=== PATIENT | male | born 1980 | race Caucasian/White ===

== ENCOUNTER 2023-03-22 12:00 | Inpatient (IN) | payer OTHER ==
[~2023-03-22] VITALS: Ht 167.6 cm; Wt 78.9 kg
[2023-03-22 12:42] VITALS: BP_SYST 113; PULSE 80; RESP 18; TEMP 98.7
[2023-03-22 13:11] VITALS: BP_SYST 113; PULSE 80; RESP 17; TEMP 98.7; O2SAT 96
[2023-03-22 13:12] VITALS: O2SAT 96
[2023-03-22] MEDS ORDERED: FLUCONAZOLE 200 MG TABLET (DIFLUCAN) PO ONE (14:15)
[2023-03-22] MEDS: ACYCLOVIR 400 MG TABLET PO SCH ×3 (15:05→22:46)
[2023-03-22] MEDS ORDERED: ACETAMINOPHEN 325 MG TABLET PO PRN (15:15)
[2023-03-22] MEDS ORDERED: FAMOTIDINE PF 20 MG/2 ML VIAL IVP ONE (15:30)
[2023-03-22] MEDS ORDERED: CHOLECALCIFEROL (VITAMIN D3) 5,000 UNIT TABLET PO ONE (16:00)
[2023-03-22] MEDS ORDERED: MAGNESIUM OXIDE 400 MG TABLET PO ONE (16:00)
[2023-03-22] MEDS: KETOROLAC TROMETHAMINE 15 MG VIAL IVP PRN (16:05)
[2023-03-22] MEDS: DIPHENHYDRAMINE INJ 50 MG/ML VIAL IVP PRN ×2 (16:05→22:46)
[2023-03-22] MEDS: LR 1,000 ML IV SCH (16:07)
[2023-03-22 16:40] VITALS: BP_SYST 118; PULSE 76; RESP 20; TEMP 98.5; O2SAT 96
[2023-03-22 16:44] LABS: HEMATOCRIT 48.8 % (36-54); HEMOGLOBIN 16.6 g/dL (14.0-18.0); MEAN CORPUSCULAR HEMOGLOBIN 29 pg (27-31); MEAN CORPUSCULAR HGB CONC 34 % (32-36); MEAN CORPUSCULAR VOLUME 86 fL (79.0-98.0); PLATELET COUNT (AUTO) 297 K/uL (130-430); RED BLOOD CELL COUNT(AUTO) 5.65 MIL/uL (4.2-6.2); RED CELL DISTRIBUTION WIDTH 14.1 % (9.0-15.0); WHITE BLOOD COUNT (AUTO) 11.6 K/uL (4.8-10.8)
[2023-03-22 16:47] LABS: ERYTHROCYTE SEDIMENTATION RATE 13 MM/HR (0-15)
[2023-03-22 16:55] LABS: CALCIUM 8.6 mg/dL (8.4-11.0); CREATININE 0.92 mg/dL (0.55-1.30); POTASSIUM 3.9 mmol/L (3.5-5.1)
[2023-03-22 16:58] LABS: ATYPICAL LYMPHOCYTES % 10 % (0-0); BAND % (MANUAL) 2 % (0-6); BASOPHILS % (MANUAL) 0 % (0-2); EOSINOPHILS % (MANUAL) 2 % (0-7); LYMPHOCYTES % (MANUAL) 10 % (20-46); MONOCYTES % (MANUAL) 3 % (0-11); PLATELET ESTIMATE ADEQUATE (ADEQUATE)
[2023-03-22 16:59] LABS: ALBUMIN 3.1 g/dL (3.4-4.8); PHOSPHORUS 3.4 mg/dL (2.7-4.5); TOTAL BILIRUBIN 0.5 mg/dL (0.0-1.0)
[2023-03-22 17:12] LABS: TOTAL PROTEIN, SERUM 6.9 g/dL (6.4-8.3)
[2023-03-22 19:00] VITALS: BP_SYST 110; PULSE 74; RESP 18; TEMP 98; O2SAT 97; O2SAT 98
[2023-03-22] MEDS: MAGNESIUM OXIDE 400 MG TABLET PO SCH (21:00)
[2023-03-22] MEDS: FAMOTIDINE PF 20 MG/2 ML VIAL IVP SCH (21:00)
[2023-03-22] MEDS: NYSTATIN 500,000 UNITS/5 ML UDC PO SCH (21:00)
[2023-03-22] MEDS: LORazepam 2 MG/ML VIAL IVP PRN (22:48)
[2023-03-22] MEDS: traMADol HCL HCL 50 MG TABLET (ULTRAM) PO PRN (22:48)
[2023-03-23] VITALS (8 sets, daily range): BP systolic 110–130; PULSE 63–95; RESP 14–18; TEMP 97.5–99.4; O2SAT 94–100
[2023-03-23] MEDS: LR 1,000 ML IV SCH ×3 (01:15→21:21)
[2023-03-23] MEDS: ACYCLOVIR 400 MG TABLET PO SCH ×5 (05:11→23:11)
[2023-03-23] MEDS: traMADol HCL HCL 50 MG TABLET (ULTRAM) PO PRN ×2 (05:12→21:17)
[2023-03-23] MEDS: KETOROLAC TROMETHAMINE 15 MG VIAL IVP PRN ×3 (08:38→20:36)
[2023-03-23] MEDS ORDERED: CHOLECALCIFEROL (VITAMIN D3) 5,000 UNIT TABLET PO SCH (09:00)
[2023-03-23] MEDS: FAMOTIDINE PF 20 MG/2 ML VIAL IVP SCH ×2 (10:21→21:17)
[2023-03-23] MEDS: NYSTATIN 500,000 UNITS/5 ML UDC PO SCH ×2 (10:21→21:17)
[2023-03-23] MEDS: CHOLECALCIFEROL (VITAMIN D3) 5,000 UNIT TABLET PO SCH (10:22)
[2023-03-23] MEDS: FLUCONAZOLE 200 MG TABLET (DIFLUCAN) PO SCH (10:25)
[2023-03-23] MEDS: MAGNESIUM OXIDE 400 MG TABLET PO SCH ×2 (10:28→21:21)
[2023-03-23] MEDS: DIPHENHYDRAMINE INJ 50 MG/ML VIAL IVP PRN ×3 (10:37→21:18)
[2023-03-23] MEDS: ACETAMINOPHEN 325 MG TABLET PO PRN (21:18)
[2023-03-23] MEDS: HYDROcodone/ACETAMIN 10-325 MG TAB PO PRN (23:12)
[2023-03-24] MEDS: TEMAZEPAM 15 MG CAPSULE PO PRN (01:06)
[2023-03-24 01:08] VITALS: BP_SYST 127; PULSE 103; RESP 18; TEMP 98.7; O2SAT 97
[2023-03-24] MEDS: KETOROLAC TROMETHAMINE 15 MG VIAL IVP PRN (02:44)
[2023-03-24] MEDS: traMADol HCL HCL 50 MG TABLET (ULTRAM) PO PRN (03:32)
[2023-03-24 05:48] LABS: BASOPHILS % (AUTO) 0.2 % (0.0-2.0); EOSINOPHILS # (AUTO) 1.2 K/uL (0.0-0.4); EOSINOPHILS % (AUTO) 8.9 % (0.0-4.0); HEMATOCRIT 47.8 % (36-54); HEMOGLOBIN 16.4 g/dL (14.0-18.0); LYMPHOCYTES # (AUTO) 1.3 K/uL (1.0-5.5); LYMPHOCYTES % (AUTO) 9.5 % (20.5-51.5); MEAN CORPUSCULAR HEMOGLOBIN 30 pg (27-31); MEAN CORPUSCULAR HGB CONC 34 % (32-36); MEAN CORPUSCULAR VOLUME 86 fL (79.0-98.0); MONOCYTES # (AUTO) 1.4 K/uL (0.0-1.0); MONOCYTES % (AUTO) 9.9 % (1.7-9.3); NEUTROPHILS # (AUTO) 9.8 K/uL (1.8-7.7); NEUTROPHILS % (AUTO) 71.5 % (40.0-70.0); PLATELET COUNT (AUTO) 255 K/uL (130-430); RED BLOOD CELL COUNT(AUTO) 5.54 MIL/uL (4.2-6.2); RED CELL DISTRIBUTION WIDTH 14.1 % (9.0-15.0); WHITE BLOOD COUNT (AUTO) 13.8 K/uL (4.8-10.8)
[2023-03-24 06:10] LABS: CALCIUM 7.9 mg/dL (8.4-11.0); CREATININE 1.05 mg/dL (0.55-1.30); POTASSIUM 3.9 mmol/L (3.5-5.1)
[2023-03-24] MEDS: ACYCLOVIR 400 MG TABLET PO SCH ×4 (07:04→21:23)
[2023-03-24] MEDS: HYDROcodone/ACETAMIN 10-325 MG TAB PO PRN ×3 (07:05→17:32)
[2023-03-24] MEDS: LR 1,000 ML IV SCH ×2 (07:18→20:55)
[2023-03-24 08:30] VITALS: BP_SYST 123; PULSE 95; RESP 18; TEMP 97.1; O2SAT 97
[2023-03-24] MEDS: MAGNESIUM OXIDE 400 MG TABLET PO SCH ×2 (10:09→20:53)
[2023-03-24] MEDS: FAMOTIDINE PF 20 MG/2 ML VIAL IVP SCH ×2 (10:10→20:54)
[2023-03-24] MEDS: CHOLECALCIFEROL (VITAMIN D3) 5,000 UNIT TABLET PO SCH (10:10)
[2023-03-24] MEDS: NYSTATIN 500,000 UNITS/5 ML UDC PO SCH ×2 (10:13→20:53)
[2023-03-24] MEDS: FLUCONAZOLE 200 MG TABLET (DIFLUCAN) PO SCH (10:13)
[2023-03-24 10:58] LABS: BILIRUBIN,URINE NEGATIVE (NEGATIVE); BLOOD, URINE NEGATIVE (NEGATIVE); COLOR,URINE YELLOW (YELLOW); GLUCOSE,URINE NEGATIVE (NEGATIVE); KETONES,URINE NEGATIVE (NEGATIVE); LEUKOCYTE ESTERASE ,URINE NEGATIVE (NEGATIVE); NITRITE, URINE NEGATIVE (NEGATIVE); UROBILINOGEN,URINE 0.2 (0.2-1.0)
[2023-03-24 11:03] LABS: CLARITY/URINE SLIGHTLY HAZY (CLEAR); PROTEIN URINE TRACE (NEGATIVE)
[2023-03-24 11:17] LABS: BACTERIA,URINE FEW /HPF (None Seen); MUCUS,URINE 1+ /LPF (None Seen); RBC,URINE 0-3 /HPF (0-3); WBC,URINE 0-3 /HPF (0-3)
[2023-03-24 12:10] VITALS: BP_SYST 119; PULSE 75; RESP 18; TEMP 96.2; O2SAT 98
[2023-03-24] MEDS: DIPHENHYDRAMINE INJ 50 MG/ML VIAL IVP PRN ×3 (12:43→20:54)
[2023-03-24 16:20] VITALS: BP_SYST 122; PULSE 85; RESP 16; TEMP 97.4; O2SAT 98
[2023-03-24 19:00] VITALS: BP_SYST 137; PULSE 101; RESP 16; TEMP 98.9; O2SAT 96; O2SAT 98
[2023-03-24 20:00] VITALS: BP_SYST 137; PULSE 101; RESP 17; TEMP 98.9; O2SAT 95
[2023-03-24] MEDS: ACETAMINOPHEN 325 MG TABLET PO PRN (20:54)
[2023-03-25] VITALS (8 sets, daily range): BP systolic 113–128; PULSE 82–106; RESP 17–20; TEMP 98.2–102.7; O2SAT 94–98
[2023-03-25] MEDS: DIPHENHYDRAMINE INJ 50 MG/ML VIAL IVP PRN ×5 (00:36→22:43)
[2023-03-25] MEDS: HYDROcodone/ACETAMIN 10-325 MG TAB PO PRN ×2 (00:36→06:28)
[2023-03-25] MEDS: LORazepam 2 MG/ML VIAL IVP PRN (03:57)
[2023-03-25] MEDS: LR 1,000 ML IV SCH (04:04)
[2023-03-25 05:01] LABS: BASOPHILS # (AUTO) 0.1 K/uL (0.0-0.2); BASOPHILS % (AUTO) 0.5 % (0.0-2.0); EOSINOPHILS # (AUTO) 1.2 K/uL (0.0-0.4); EOSINOPHILS % (AUTO) 7.2 % (0.0-4.0); HEMATOCRIT 46.4 % (36-54); HEMOGLOBIN 16.1 g/dL (14.0-18.0); LYMPHOCYTES # (AUTO) 1.5 K/uL (1.0-5.5); LYMPHOCYTES % (AUTO) 9.1 % (20.5-51.5); MEAN CORPUSCULAR HEMOGLOBIN 30 pg (27-31); MEAN CORPUSCULAR HGB CONC 35 % (32-36); MEAN CORPUSCULAR VOLUME 85 fL (79.0-98.0); MONOCYTES # (AUTO) 0.8 K/uL (0.0-1.0); MONOCYTES % (AUTO) 5.1 % (1.7-9.3); NEUTROPHILS # (AUTO) 12.8 K/uL (1.8-7.7); NEUTROPHILS % (AUTO) 78.1 % (40.0-70.0); PLATELET COUNT (AUTO) 251 K/uL (130-430); RED BLOOD CELL COUNT(AUTO) 5.44 MIL/uL (4.2-6.2); WHITE BLOOD COUNT (AUTO) 16.4 K/uL (4.8-10.8)
[2023-03-25 05:33] LABS: ALBUMIN 2.5 g/dL (3.4-4.8); CALCIUM 8.2 mg/dL (8.4-11.0); CREATININE 1.17 mg/dL (0.55-1.30); PHOSPHORUS 2.6 mg/dL (2.7-4.5); TOTAL BILIRUBIN 1.6 mg/dL (0.0-1.0); TOTAL PROTEIN, SERUM 6.7 g/dL (6.4-8.3)
[2023-03-25] MEDS: ACYCLOVIR 400 MG TABLET PO SCH ×5 (06:11→22:43)
[2023-03-25] MEDS ORDERED: NALOXONE HCL 0.4 MG/ML AMP (NARCAN) IVP PRN (07:15)
[2023-03-25] MEDS: HYDROmorphone 1 MG/ML INJ. CARTRIDGE IVP PRN ×3 (07:43→17:23)
[2023-03-25] MEDS: FAMOTIDINE PF 20 MG/2 ML VIAL IVP SCH ×2 (09:13→22:43)
[2023-03-25] MEDS: NYSTATIN 500,000 UNITS/5 ML UDC PO SCH ×2 (09:14→22:44)
[2023-03-25] MEDS: CHOLECALCIFEROL (VITAMIN D3) 5,000 UNIT TABLET PO SCH (09:14)
[2023-03-25] MEDS: MAGNESIUM OXIDE 400 MG TABLET PO SCH ×2 (09:14→22:43)
[2023-03-25] MEDS: FLUCONAZOLE 200 MG TABLET (DIFLUCAN) PO SCH (09:14)
[2023-03-25] MEDS: NACL 0.9% 1,000 ML IV SCH (13:58)
[2023-03-25] MEDS ORDERED: ceFAZolin SODIUM 1 GM in D5W 100 ML IV ONE (15:00)
[2023-03-25] MEDS ORDERED: NACL 0.9% 1,000 ML IV ONE (17:15)
[2023-03-25] MEDS: ACETAMINOPHEN 325 MG TABLET PO PRN (17:21)
[2023-03-25] MEDS: PIPERACILLIN/TAZO 3.375/DEX-IS 50 ML IV SCH (18:27)
[2023-03-25 19:52] LABS: INR 1.3 (0.80-1.20); PROTHROMBIN TIME 13.2 SECS (9.5-12.5)
[2023-03-25 21:22] LABS: BILIRUBIN,URINE NEGATIVE (NEGATIVE); BLOOD, URINE NEGATIVE (NEGATIVE); CLARITY/URINE Clear (CLEAR); COLOR,URINE YELLOW (YELLOW); GLUCOSE,URINE NEGATIVE (NEGATIVE); KETONES,URINE 2+ (NEGATIVE); LEUKOCYTE ESTERASE ,URINE NEGATIVE (NEGATIVE); NITRITE, URINE NEGATIVE (NEGATIVE); PH,URINE 6.5 (5.0-8.0); PROTEIN URINE NEGATIVE (NEGATIVE); UROBILINOGEN,URINE 0.2 (0.2-1.0)
[2023-03-25] MEDS ORDERED: ceFAZolin SODIUM 1 GM in D5W 100 ML IV SCH (22:00)
[2023-03-25] MEDS: ENOXAPARIN SODIUM 80 MG/0.8 ML SYRINGE SUBCUT SCH (22:44)
[2023-03-26] MEDS: LORazepam 2 MG/ML VIAL IVP PRN (00:39)
[2023-03-26] MEDS: PIPERACILLIN/TAZO 3.375/DEX-IS 50 ML IV SCH ×4 (00:40→18:28)
[2023-03-26 02:00] VITALS: BP_SYST 120; PULSE 112; RESP 18; TEMP 98.6; O2SAT 94
[2023-03-26 04:46] LABS: BASOPHILS # (AUTO) 0.1 K/uL (0.0-0.2); BASOPHILS % (AUTO) 0.5 % (0.0-2.0); EOSINOPHILS # (AUTO) 1.5 K/uL (0.0-0.4); EOSINOPHILS % (AUTO) 8.7 % (0.0-4.0); HEMATOCRIT 40.5 % (36-54); HEMOGLOBIN 14.1 g/dL (14.0-18.0); LYMPHOCYTES # (AUTO) 0.9 K/uL (1.0-5.5); LYMPHOCYTES % (AUTO) 5.5 % (20.5-51.5); MEAN CORPUSCULAR HEMOGLOBIN 30 pg (27-31); MEAN CORPUSCULAR HGB CONC 35 % (32-36); MEAN CORPUSCULAR VOLUME 85 fL (79.0-98.0); MONOCYTES # (AUTO) 0.6 K/uL (0.0-1.0); MONOCYTES % (AUTO) 3.2 % (1.7-9.3); NEUTROPHILS # (AUTO) 14.2 K/uL (1.8-7.7); NEUTROPHILS % (AUTO) 82.1 % (40.0-70.0); PLATELET COUNT (AUTO) 200 K/uL (130-430); RED BLOOD CELL COUNT(AUTO) 4.77 MIL/uL (4.2-6.2); RED CELL DISTRIBUTION WIDTH 13.8 % (9.0-15.0); WHITE BLOOD COUNT (AUTO) 17.3 K/uL (4.8-10.8)
[2023-03-26 05:08] LABS: ALBUMIN 2.3 g/dL (3.4-4.8); CALCIUM 7.9 mg/dL (8.4-11.0); CREATININE 1.09 mg/dL (0.55-1.30); TOTAL PROTEIN, SERUM 6.8 g/dL (6.4-8.3)
[2023-03-26] MEDS: HYDROmorphone 1 MG/ML INJ. CARTRIDGE IVP PRN ×2 (05:15→12:51)
[2023-03-26] MEDS: ACYCLOVIR 400 MG TABLET PO SCH ×5 (06:42→21:28)
[2023-03-26] MEDS ORDERED: VANCOMYCIN HCL 1 GM/NS PREMIX 250 ML IV ONE (07:15)
[2023-03-26 08:16] VITALS: BP_SYST 118; PULSE 97; RESP 16; TEMP 98.2; O2SAT 100
[2023-03-26] MEDS: CHOLECALCIFEROL (VITAMIN D3) 5,000 UNIT TABLET PO SCH (08:20)
[2023-03-26] MEDS: FLUCONAZOLE 200 MG TABLET (DIFLUCAN) PO SCH (08:20)
[2023-03-26] MEDS: FAMOTIDINE PF 20 MG/2 ML VIAL IVP SCH ×2 (08:20→21:28)
[2023-03-26] MEDS: ENOXAPARIN SODIUM 80 MG/0.8 ML SYRINGE SUBCUT SCH (08:20)
[2023-03-26] MEDS: MAGNESIUM OXIDE 400 MG TABLET PO SCH ×2 (08:20→21:28)
[2023-03-26] MEDS: NYSTATIN 500,000 UNITS/5 ML UDC PO SCH ×2 (08:21→21:27)
[2023-03-26] MEDS: ACETAMINOPHEN 325 MG TABLET PO PRN ×2 (09:58→22:43)
[2023-03-26] MEDS: VANCOMYCIN HCL 1,000 MG in NS 250 ML IV SCH ×2 (10:35→21:26)
[2023-03-26] MEDS ORDERED: methylPREDNISolone SOD SUCC/PF 62.5 MG/ML VIAL IVP ONE (11:15)
[2023-03-26] MEDS ORDERED: METHYLPREDNISOLONE SOD SUCC 40 MG/ML VIAL IVP ONE (11:30)
[2023-03-26 12:00] VITALS: BP_SYST 117; PULSE 100; RESP 16; TEMP 99.9; O2SAT 99
[2023-03-26] MEDS: METHYLPREDNISOLONE SOD SUCC 40 MG/ML VIAL IVP SCH ×2 (13:02→21:27)
[2023-03-26] MEDS: NACL 0.9% 1,000 ML IV SCH ×3 (15:09→22:45)
[2023-03-26 16:00] VITALS: BP_SYST 121; PULSE 101; RESP 16; TEMP 98.2; O2SAT 94
[2023-03-26 21:00] VITALS: BP_SYST 127; PULSE 99; RESP 18; TEMP 98.8; O2SAT 95
[2023-03-26] MEDS ORDERED: methylPREDNISolone SOD SUCC/PF 62.5 MG/ML VIAL IVP SCH (22:00)
[2023-03-26] MEDS: APIXABAN 2.5 MG TABLET PO SCH (22:27)
[2023-03-26] MEDS: TEMAZEPAM 15 MG CAPSULE PO PRN (22:34)
[2023-03-27 00:32] VITALS: BP_SYST 120; PULSE 100; RESP 18; TEMP 98.4; O2SAT 97
[2023-03-27] MEDS: PIPERACILLIN/TAZO 3.375/DEX-IS 50 ML IV SCH ×5 (01:38→22:56)
[2023-03-27 05:17] LABS: BASOPHILS % (AUTO) 0.1 % (0.0-2.0); EOSINOPHILS # (AUTO) 0.3 K/uL (0.0-0.4); EOSINOPHILS % (AUTO) 2.2 % (0.0-4.0); HEMATOCRIT 36.1 % (36-54); HEMOGLOBIN 12.4 g/dL (14.0-18.0); LYMPHOCYTES # (AUTO) 1.4 K/uL (1.0-5.5); LYMPHOCYTES % (AUTO) 9.3 % (20.5-51.5); MEAN CORPUSCULAR HEMOGLOBIN 30 pg (27-31); MEAN CORPUSCULAR HGB CONC 34 % (32-36); MEAN CORPUSCULAR VOLUME 86 fL (79.0-98.0); MONOCYTES # (AUTO) 0.6 K/uL (0.0-1.0); NEUTROPHILS # (AUTO) 12.7 K/uL (1.8-7.7); NEUTROPHILS % (AUTO) 84.4 % (40.0-70.0); PLATELET COUNT (AUTO) 196 K/uL (130-430); RED BLOOD CELL COUNT(AUTO) 4.19 MIL/uL (4.2-6.2); RED CELL DISTRIBUTION WIDTH 13.9 % (9.0-15.0); WHITE BLOOD COUNT (AUTO) 15.1 K/uL (4.8-10.8)
[2023-03-27 05:21] LABS: INR 1.3 (0.80-1.20); PROTHROMBIN TIME 13.3 SECS (9.5-12.5)
[2023-03-27 05:32] LABS: ALBUMIN 2.1 g/dL (3.4-4.8); CALCIUM 8.2 mg/dL (8.4-11.0); CREATININE 0.79 mg/dL (0.55-1.30); POTASSIUM 3.4 mmol/L (3.5-5.1); TOTAL BILIRUBIN 0.8 mg/dL (0.0-1.0); TOTAL PROTEIN, SERUM 7.1 g/dL (6.4-8.3)
[2023-03-27] MEDS: ACYCLOVIR 400 MG TABLET PO SCH ×5 (06:07→21:31)
[2023-03-27] MEDS: METHYLPREDNISOLONE SOD SUCC 40 MG/ML VIAL IVP SCH ×2 (06:16→21:32)
[2023-03-27] MEDS: NACL 0.9% 1,000 ML IV SCH ×2 (06:27→21:36)
[2023-03-27 07:49] VITALS: BP_SYST 121; PULSE 84; RESP 16; TEMP 97.7; O2SAT 96
[2023-03-27 08:00] VITALS: BP_SYST 121; PULSE 84; RESP 16; TEMP 97.7; O2SAT 96
[2023-03-27] MEDS: NYSTATIN 500,000 UNITS/5 ML UDC PO SCH ×2 (08:05→21:31)
[2023-03-27] MEDS: FAMOTIDINE PF 20 MG/2 ML VIAL IVP SCH ×2 (08:05→21:34)
[2023-03-27] MEDS: FLUCONAZOLE 200 MG TABLET (DIFLUCAN) PO SCH (08:06)
[2023-03-27] MEDS: CHOLECALCIFEROL (VITAMIN D3) 5,000 UNIT TABLET PO SCH (08:06)
[2023-03-27] MEDS: APIXABAN 2.5 MG TABLET PO SCH ×2 (08:07→21:31)
[2023-03-27] MEDS: MAGNESIUM OXIDE 400 MG TABLET PO SCH ×2 (08:08→21:31)
[2023-03-27] MEDS: DAPSONE 100MG TABLET PO SCH (10:27)
[2023-03-27] MEDS: VANCOMYCIN HCL 1,000 MG in NS 250 ML IV SCH ×2 (10:30→20:26)
[2023-03-27 12:00] VITALS: BP_SYST 119; PULSE 80; RESP 20; TEMP 97.9; O2SAT 98
[2023-03-27] MEDS ORDERED: POTASSIUM CHLORIDE 20 MEQ TAB.PRT.SR PO ONE (14:30)
[2023-03-27 16:00] VITALS: BP_SYST 121; PULSE 78; RESP 18; TEMP 97; O2SAT 98
[2023-03-27 20:00] VITALS: BP_SYST 119; PULSE 62; RESP 18; TEMP 97.8; O2SAT 94
[2023-03-27] MEDS: ACETAMINOPHEN 325 MG TABLET PO PRN (21:36)
[2023-03-28] VITALS (9 sets, daily range): BP systolic 122–163; PULSE 41–86; RESP 16–20; TEMP 97.3–98.1; O2SAT 93–97
[2023-03-28] MEDS: VANCOMYCIN HCL 1,000 MG in NS 250 ML IV SCH ×3 (01:56→18:29)
[2023-03-28] MEDS: METHYLPREDNISOLONE SOD SUCC 40 MG/ML VIAL IVP SCH ×3 (05:08→21:52)
[2023-03-28] MEDS: ACYCLOVIR 400 MG TABLET PO SCH ×5 (05:08→21:51)
[2023-03-28] MEDS: PIPERACILLIN/TAZO 3.375/DEX-IS 50 ML IV SCH (05:08)
[2023-03-28 07:12] LABS: BASOPHILS % (AUTO) 0.2 % (0.0-2.0); EOSINOPHILS % (AUTO) 0.2 % (0.0-4.0); HEMATOCRIT 33.5 % (36-54); HEMOGLOBIN 11.3 g/dL (14.0-18.0); LYMPHOCYTES # (AUTO) 1.3 K/uL (1.0-5.5); LYMPHOCYTES % (AUTO) 8.3 % (20.5-51.5); MEAN CORPUSCULAR HEMOGLOBIN 29 pg (27-31); MEAN CORPUSCULAR HGB CONC 34 % (32-36); MEAN CORPUSCULAR VOLUME 87 fL (79.0-98.0); MONOCYTES # (AUTO) 1.1 K/uL (0.0-1.0); MONOCYTES % (AUTO) 6.9 % (1.7-9.3); NEUTROPHILS # (AUTO) 13.5 K/uL (1.8-7.7); NEUTROPHILS % (AUTO) 84.4 % (40.0-70.0); PLATELET COUNT (AUTO) 166 K/uL (130-430); RED BLOOD CELL COUNT(AUTO) 3.84 MIL/uL (4.2-6.2)
[2023-03-28 07:24] LABS: ALBUMIN 2.1 g/dL (3.4-4.8); CALCIUM 8.4 mg/dL (8.4-11.0); CREATININE 0.89 mg/dL (0.55-1.30); POTASSIUM 4.1 mmol/L (3.5-5.1); TOTAL BILIRUBIN 0.6 mg/dL (0.0-1.0); TOTAL PROTEIN, SERUM 7.3 g/dL (6.4-8.3)
[2023-03-28] MEDS: FAMOTIDINE PF 20 MG/2 ML VIAL IVP SCH (09:00)
[2023-03-28] MEDS: APIXABAN 2.5 MG TABLET PO SCH (10:02)
[2023-03-28] MEDS: CHOLECALCIFEROL (VITAMIN D3) 5,000 UNIT TABLET PO SCH (10:04)
[2023-03-28] MEDS: MAGNESIUM OXIDE 400 MG TABLET PO SCH (10:06)
[2023-03-28] MEDS: DAPSONE 100MG TABLET PO SCH (10:08)
[2023-03-28] MEDS: NACL 0.9% 1,000 ML IV SCH (10:41)
[2023-03-28] MEDS: FLUCONAZOLE 200 MG TABLET (DIFLUCAN) PO SCH (11:15)
[2023-03-28] MEDS: POTASSIUM CHLORIDE 20 MEQ TAB.PRT.SR PO SCH (11:16)
[2023-03-28] MEDS: NYSTATIN 500,000 UNITS/5 ML UDC PO SCH ×2 (11:17→21:51)
[2023-03-28] MEDS ORDERED: ATROPINE SULFATE 1 MG/10 ML SYRINGE IVP PRN (19:00)
[2023-03-28] MEDS ORDERED: THEOPHYLLINE ANHYDROUS 80 MG/15 ML UDC PO ONE (19:00)
[2023-03-28] MEDS ORDERED: MAG-AL HYDROX/SIMETH 30 ML UDC PO PRN (19:30)
[2023-03-28] MEDS ORDERED: MAG-AL HYDROX/SIMETH 30 ML UDC PO ONE (19:45)
[2023-03-28] MEDS ORDERED: PANTOPRAZOLE SODIUM 40 MG/VIAL (PROTONIX) IVP ONE ×2 (19:45→23:00)
[2023-03-28] MEDS ORDERED: SIMETHICONE 80 MG TAB.CHEW PO ONE (19:45)
[2023-03-28] MEDS ORDERED: PANTOPRAZOLE SODIUM 40 MG/VIAL (PROTONIX) ONE ×2 (22:36→23:23)
[2023-03-28] MEDS ORDERED: VANCOMYCIN HCL Non-Formulary 250 MG CAPSULE PO SCH (23:00)
[2023-03-28] MEDS ORDERED: ATROPINE SULFATE 0.4 MG/ML VIAL IM ONE (23:00)
[2023-03-28] MEDS: ACETAMINOPHEN 325 MG TABLET PO PRN (23:15)
[2023-03-29] VITALS (23 sets, daily range): BP systolic 124–176; PULSE 45–85; RESP 15–23; TEMP 97–98.2; O2SAT 17–98
[2023-03-29] MEDS: PANTOPRAZOLE SODIUM 40 MG in NS 50 ML IV SCH ×5 (00:07→19:09)
[2023-03-29] MEDS ORDERED: ONDANSETRON HCL 4 MG/2 ML VIAL IVP PRN (00:30)
[2023-03-29] MEDS ORDERED: ONDANSETRON HCL 4 MG/2 ML VIAL ONE (00:31)
[2023-03-29 00:43] LABS: BASOPHILS % (AUTO) 0.1 % (0.0-2.0); EOSINOPHILS # (AUTO) 0.1 K/uL (0.0-0.4); EOSINOPHILS % (AUTO) 0.8 % (0.0-4.0); HEMATOCRIT 36.5 % (36-54); HEMOGLOBIN 12.5 g/dL (14.0-18.0); LYMPHOCYTES # (AUTO) 1.6 K/uL (1.0-5.5); LYMPHOCYTES % (AUTO) 9.5 % (20.5-51.5); MEAN CORPUSCULAR HEMOGLOBIN 30 pg (27-31); MEAN CORPUSCULAR HGB CONC 34 % (32-36); MEAN CORPUSCULAR VOLUME 86 fL (79.0-98.0); MONOCYTES # (AUTO) 1.6 K/uL (0.0-1.0); MONOCYTES % (AUTO) 9.4 % (1.7-9.3); NEUTROPHILS # (AUTO) 13.4 K/uL (1.8-7.7); NEUTROPHILS % (AUTO) 80.2 % (40.0-70.0); PLATELET COUNT (AUTO) 261 K/uL (130-430); RED BLOOD CELL COUNT(AUTO) 4.23 MIL/uL (4.2-6.2); RED CELL DISTRIBUTION WIDTH 13.9 % (9.0-15.0); WHITE BLOOD COUNT (AUTO) 16.7 K/uL (4.8-10.8)
[2023-03-29] MEDS ORDERED: METOCLOPRAMIDE HCL 10 MG/2 ML VIAL ONE (00:54)
[2023-03-29] MEDS ORDERED: METOCLOPRAMIDE HCL 10 MG/2 ML VIAL IVP PRN (01:00)
[2023-03-29 01:02] LABS: CALCIUM 8.7 mg/dL (8.4-11.0); CREATININE 1.01 mg/dL (0.55-1.30); POTASSIUM 3.5 mmol/L (3.5-5.1)
[2023-03-29] MEDS: DICYCLOMINE HCL 10 MG CAPSULE PO SCH ×5 (01:03→20:25)
[2023-03-29 01:05] LABS: INR 1.1 (0.80-1.20); PROTHROMBIN TIME 11.6 SECS (9.5-12.5)
[2023-03-29 01:09] LABS: ALBUMIN 2.6 g/dL (3.4-4.8); TOTAL BILIRUBIN 0.6 mg/dL (0.0-1.0); TOTAL PROTEIN, SERUM 8.5 g/dL (6.4-8.3)
[2023-03-29] MEDS: DIPHENHYDRAMINE INJ 50 MG/ML VIAL IVP PRN (02:00)
[2023-03-29] MEDS: NACL 0.9% 1,000 ML IV SCH ×2 (02:13→13:06)
[2023-03-29] MEDS ORDERED: PANTOPRAZOLE SODIUM 40 MG/VIAL (PROTONIX) ONE (04:04)
[2023-03-29] MEDS ORDERED: ATROPINE SULFATE 1 MG/10 ML SYRINGE IVP PRN (05:15)
[2023-03-29] MEDS: ACYCLOVIR 400 MG TABLET PO SCH ×5 (06:03→22:00)
[2023-03-29] MEDS: METHYLPREDNISOLONE SOD SUCC 40 MG/ML VIAL IVP SCH ×2 (06:03→13:56)
[2023-03-29 07:49] LABS: BASOPHILS % (AUTO) 0.1 % (0.0-2.0); EOSINOPHILS # (AUTO) 0.1 K/uL (0.0-0.4); EOSINOPHILS % (AUTO) 0.5 % (0.0-4.0); HEMATOCRIT 34.4 % (36-54); HEMOGLOBIN 11.5 g/dL (14.0-18.0); LYMPHOCYTES # (AUTO) 1.8 K/uL (1.0-5.5); LYMPHOCYTES % (AUTO) 11.1 % (20.5-51.5); MEAN CORPUSCULAR HEMOGLOBIN 29 pg (27-31); MEAN CORPUSCULAR HGB CONC 33 % (32-36); MEAN CORPUSCULAR VOLUME 87 fL (79.0-98.0); MONOCYTES # (AUTO) 1.4 K/uL (0.0-1.0); MONOCYTES % (AUTO) 8.8 % (1.7-9.3); NEUTROPHILS # (AUTO) 12.9 K/uL (1.8-7.7); NEUTROPHILS % (AUTO) 79.5 % (40.0-70.0); PLATELET COUNT (AUTO) 218 K/uL (130-430); RED BLOOD CELL COUNT(AUTO) 3.97 MIL/uL (4.2-6.2); RED CELL DISTRIBUTION WIDTH 13.6 % (9.0-15.0); WHITE BLOOD COUNT (AUTO) 16.3 K/uL (4.8-10.8)
[2023-03-29 08:12] LABS: INR 1.1 (0.80-1.20); PROTHROMBIN TIME 11.7 SECS (9.5-12.5)
[2023-03-29 08:21] LABS: ALBUMIN 2.4 g/dL (3.4-4.8); CALCIUM 8.6 mg/dL (8.4-11.0); CREATININE 0.92 mg/dL (0.55-1.30); POTASSIUM 3.8 mmol/L (3.5-5.1); TOTAL BILIRUBIN 0.5 mg/dL (0.0-1.0); TOTAL PROTEIN, SERUM 7.7 g/dL (6.4-8.3)
[2023-03-29 08:30] LABS: PHOSPHORUS 4.5 mg/dL (2.7-4.5)
[2023-03-29] MEDS ORDERED: MIDAZOLAM HCL 5 MG/5 ML VIAL ONE (08:35)
[2023-03-29] MEDS ORDERED: fentaNYL CITRATE/PF 100 MCG/2 ML AMP ONE (08:35)
[2023-03-29 08:52] LABS: VANCOMYCIN,TROUGH 8.6 ug/mL (10.0-20.0)
[2023-03-29] MEDS ORDERED: PANTOPRAZOLE SODIUM 40 MG/VIAL (PROTONIX) IVP SCH (09:00)
[2023-03-29] MEDS: CHOLECALCIFEROL (VITAMIN D3) 5,000 UNIT TABLET PO SCH (10:17)
[2023-03-29] MEDS: SIMETHICONE 80 MG TAB.CHEW PO SCH ×3 (10:17→20:26)
[2023-03-29] MEDS: POTASSIUM CHLORIDE 20 MEQ TAB.PRT.SR PO SCH (10:17)
[2023-03-29] MEDS: VANCOMYCIN HCL ORAL SOLUTION 125 MG/5 ML, 150 ML PO SCH ×4 (10:18→20:26)
[2023-03-29] MEDS: DAPSONE 100MG TABLET PO SCH (10:18)
[2023-03-29] MEDS: THEOPHYLLINE ANHYDROUS 80 MG/15 ML UDC PO SCH ×2 (10:18→20:25)
[2023-03-29] MEDS: ACETAMINOPHEN 325 MG TABLET PO PRN (17:44)
[2023-03-29] MEDS ORDERED: amLODIPine BESYLATE 5 MG TABLET PO ONE (19:30)
[2023-03-29] MEDS: predniSONE 20 MG TABLET PO SCH (21:00)
[2023-03-29] MEDS: PANTOPRAZOLE SODIUM 40 MG TAB PO SCH (21:00)
[2023-03-30] VITALS (7 sets, daily range): BP systolic 118–167; PULSE 43–83; RESP 15–16; TEMP 97–98.1; O2SAT 92–96
[2023-03-30] MEDS: ACETAMINOPHEN 325 MG TABLET PO PRN (00:18)
[2023-03-30 06:09] LABS: BASOPHILS % (AUTO) 0.2 % (0.0-2.0); EOSINOPHILS # (AUTO) 0.7 K/uL (0.0-0.4); EOSINOPHILS % (AUTO) 4.2 % (0.0-4.0); HEMATOCRIT 37.3 % (36-54); HEMOGLOBIN 12.7 g/dL (14.0-18.0); LYMPHOCYTES % (AUTO) 19.2 % (20.5-51.5); MEAN CORPUSCULAR HEMOGLOBIN 30 pg (27-31); MEAN CORPUSCULAR HGB CONC 34 % (32-36); MEAN CORPUSCULAR VOLUME 87 fL (79.0-98.0); MONOCYTES # (AUTO) 1.6 K/uL (0.0-1.0); MONOCYTES % (AUTO) 10.5 % (1.7-9.3); NEUTROPHILS # (AUTO) 10.4 K/uL (1.8-7.7); NEUTROPHILS % (AUTO) 65.9 % (40.0-70.0); PLATELET COUNT (AUTO) 272 K/uL (130-430); RED CELL DISTRIBUTION WIDTH 13.8 % (9.0-15.0); WHITE BLOOD COUNT (AUTO) 15.7 K/uL (4.8-10.8)
[2023-03-30 06:12] LABS: CALCIUM 9.1 mg/dL (8.4-11.0); CREATININE 1.04 mg/dL (0.55-1.30); POTASSIUM 4.1 mmol/L (3.5-5.1)
[2023-03-30 06:28] LABS: INR 1.1 (0.80-1.20); PROTHROMBIN TIME 11.6 SECS (9.5-12.5)
[2023-03-30 06:31] LABS: ALBUMIN 2.6 g/dL (3.4-4.8); PHOSPHORUS 4.2 mg/dL (2.7-4.5); TOTAL BILIRUBIN 0.7 mg/dL (0.0-1.0); TOTAL PROTEIN, SERUM 8.7 g/dL (6.4-8.3)
[2023-03-30 07:07] LABS: IMMUNOGLOBULIN A, SERUM 352 mg/dL (90-386)
[2023-03-30] MEDS ORDERED: amLODIPine BESYLATE 5 MG TABLET PO SCH (09:00)
[2023-03-30] MEDS: ACYCLOVIR 400 MG TABLET PO SCH ×2 (10:00→10:13)
[2023-03-30] MEDS: DICYCLOMINE HCL 10 MG CAPSULE PO SCH ×2 (10:16→14:30)
[2023-03-30] MEDS: DAPSONE 100MG TABLET PO SCH (10:16)
[2023-03-30] MEDS: THEOPHYLLINE ANHYDROUS 80 MG/15 ML UDC PO SCH (10:17)
[2023-03-30] MEDS: POTASSIUM CHLORIDE 20 MEQ TAB.PRT.SR PO SCH (10:18)
[2023-03-30] MEDS: SIMETHICONE 80 MG TAB.CHEW PO SCH ×2 (10:18→14:30)
[2023-03-30] MEDS: predniSONE 20 MG TABLET PO SCH (10:20)
[2023-03-30] MEDS: PANTOPRAZOLE SODIUM 40 MG TAB PO SCH (10:21)
[2023-03-30] MEDS: CHOLECALCIFEROL (VITAMIN D3) 5,000 UNIT TABLET PO SCH (10:22)
[2023-03-30] MEDS: VANCOMYCIN HCL ORAL SOLUTION 125 MG/5 ML, 150 ML PO SCH ×2 (10:36→14:31)
[2023-03-30] MEDS ORDERED: AMLO5TAB4 PO (14:20)
[2023-03-30] MEDS ORDERED: DICY-14 PO (14:20)
[2023-03-30] MEDS ORDERED: Potassium Chloride PO (14:20)
[2023-03-30] MEDS ORDERED: ONDA4VIA52 IVP (14:20)
[2023-03-30] MEDS ORDERED: PRED10TA PO (14:20)
[2023-03-30] MEDS ORDERED: SIME80TA15 PO (14:20)
[2023-03-30] MEDS ORDERED: PRO40 PO (14:20)
[2023-03-30] MEDS ORDERED: THEO80SO4 PO (14:20)
[2023-03-30] MEDS ORDERED: CHOL500013 PO (14:20)
[2023-03-30] MEDS ORDERED: APIX2.5T PO (14:30)
== END 2023-03-30 16:50 | disposition home or self-care (01) | DRG 872 ==
LOC: SMU 12:00 → STU 03-25 17:49 → SMU 03-26 18:33 → STU 03-28 18:52 → SIC 03-28 20:22 → STU 03-30 04:53
PROVIDERS: ADMIT Internal Medicine; ATTEND Internal Medicine
PROC: 0DB98ZX Excision of Duodenum, Via Natural or Artificial Opening Endoscopic, Diagnostic (ICD-10-PCS; principal; 2023-03-29 08:30)
PROC: 0DB78ZX Excision of Stomach, Pylorus, Via Natural or Artificial Opening Endoscopic, Diagnostic (ICD-10-PCS; 2023-03-29 08:30)
DX: A41.9 Sepsis, unspecified organism (principal); L03.113 Cellulitis of right upper limb; B37.0 Candidal stomatitis; I82.621 Acute embolism and thrombosis of deep veins of right upper extremity; I80.8 Phlebitis and thrombophlebitis of other sites; K29.00 Acute gastritis without bleeding; M13.0 Polyarthritis, unspecified; E55.9 Vitamin D deficiency, unspecified; B00.9 Herpesviral infection, unspecified; K64.9 Unspecified hemorrhoids; K44.9 Diaphragmatic hernia without obstruction or gangrene; K90.0 Celiac disease; D72.10 Eosinophilia, unspecified; L13.0 Dermatitis herpetiformis; R00.1 Bradycardia, unspecified; Z87.891 Personal history of nicotine dependence; Z86.16 Personal history of COVID-19
CPT/HCPCS: 36415; 70450-TC; 70486-TC; 71045; 76376; 80048; 80053; 80202; 81000; 81003; 82272; 82784; 83516; 83605; 83735; 84100; 84484; 85007; 85025; 85027; 85610-TC; 85651-TC; 85730-TC; 86255; 86592; 86787; 86886; 86900; 86901; 86920; 87040; 87081; 87086; 93005; 93306; 93970; 93971; 97110-GP; 97116-GP; 97163-GP; 97530-GP; C9113; G0378; J0461; J1030; J1170; J1200; J1650; J1885; J2060; J2250; J2405; J2543; J2765; J2930; J3010; J3370; J3490; J7030; J7050; J7060; J7120; J7512

== ENCOUNTER 2023-04-19 22:04 | Emergency (ER) | payer OTHER ==
[~2023-04-19] VITALS: Ht 167.6 cm; Wt 77.1 kg
[~2023-04-19 22:04] MED LIST: AMLO5TAB4 PO; APIX2.5T PO; CHOL500013 PO; DICY-14 PO; ONDA4VIA52 IVP; PRED10TA PO; PRO40 PO; Potassium Chloride PO; SIME80TA15 PO; THEO80SO4 PO
[2023-04-19 22:15] VITALS: BP_SYST 121; PULSE 97; RESP 16; TEMP 97.9; O2SAT 99
[2023-04-19 23:19] VITALS: TEMP 97.5
[2023-04-19 23:52] LABS: BASOPHILS % (AUTO) 0.4 % (0.0-2.0); EOSINOPHILS # (AUTO) 2.5 K/uL (0.0-0.4); EOSINOPHILS % (AUTO) 24.4 % (0.0-4.0); HEMATOCRIT 41.1 % (36-54); LYMPHOCYTES # (AUTO) 2.1 K/uL (1.0-5.5); MEAN CORPUSCULAR HEMOGLOBIN 30 pg (27-31); MEAN CORPUSCULAR HGB CONC 34 % (32-36); MEAN CORPUSCULAR VOLUME 87 fL (79.0-98.0); MONOCYTES # (AUTO) 0.6 K/uL (0.0-1.0); MONOCYTES % (AUTO) 6.1 % (1.7-9.3); NEUTROPHILS # (AUTO) 4.9 K/uL (1.8-7.7); NEUTROPHILS % (AUTO) 48.1 % (40.0-70.0); PLATELET COUNT (AUTO) 290 K/uL (130-430); RED BLOOD CELL COUNT(AUTO) 4.73 MIL/uL (4.2-6.2); RED CELL DISTRIBUTION WIDTH 15.3 % (9.0-15.0); WHITE BLOOD COUNT (AUTO) 10.2 K/uL (4.8-10.8)
[2023-04-19 23:58] LABS: ERYTHROCYTE SEDIMENTATION RATE 49 MM/HR (0-15)
[2023-04-20] MEDS ORDERED: methocarbamoL 500 MG TABLET PO ONE
[2023-04-20 00:02] LABS: CALCIUM 9.4 mg/dL (8.4-11.0); CREATININE 0.85 mg/dL (0.55-1.30); POTASSIUM 3.5 mmol/L (3.5-5.1)
[2023-04-20 00:36] LABS: ALBUMIN 3.3 g/dL (3.4-4.8); TOTAL BILIRUBIN 0.8 mg/dL (0.0-1.0); TOTAL PROTEIN, SERUM 7.7 g/dL (6.4-8.3)
[2023-04-20] MEDS ORDERED: METH-634 PO (01:45)
[2023-04-20] MEDS ORDERED: APIX5TAB PO (01:45)
[2023-04-20 02:02] VITALS: BP_SYST 123; PULSE 80; RESP 19; O2SAT 96
== END 2023-04-20 02:02 | disposition home or self-care (01) ==
LOC: SED 22:04
DX: I82.621 Acute embolism and thrombosis of deep veins of right upper extremity (principal); R21 Rash and other nonspecific skin eruption; M79.601 Pain in right arm; M79.602 Pain in left arm; Z79.899 Other long term (current) drug therapy
CPT/HCPCS: 36415; 80053; 85025; 85651-TC; 93970; 99284